=== PATIENT | female | born 1945 | race Caucasian/White ===

== ENCOUNTER 2024-10-18 10:57 | Outpatient (CLI) | payer OTHER ==
[~2024-10-18 10:57] MED LIST: BONIVA2.5 MG PO; CALCIUM1 TAB PO
== END 2024-10-18 11:06 | disposition home or self-care (01) ==
LOC: TOM 10:57
PROVIDERS: ATTEND Orthopaedic Surgery
DX: M23.261 Derangement of other lateral meniscus due to old tear or injury, right knee (principal); M85.651 Other cyst of bone, right thigh